=== PATIENT | male | born 1955 | race Caucasian/White ===

== ENCOUNTER 2022-01-02 13:17 | Emergency (ER) | payer MEDICARE, SELFPAY ==
[2022-01-02 15:21] VITALS: BP 152/106; PULSE 64; RESP 18; TEMP 36.9; O2SAT 97; BMI 23.7
--- NOTE | 2022-01-02 15:30 | HMH.EDUTC ---
[facility] [place] Clinical Impression: Bronchitis Sinusitis Qualifiers: Sinusitis location: unspecified location Chronicity: acute Recurrence: non-recurrent Qualified Code(s): J01.90 - Acute sinusitis, unspecified Disposition: Home, Self-Care Condition on Discharge: Good Instructions: Sinusitis, DI for Sinusitis, DI for Acute Bronchitis Additional Instructions: Drink plenty of fluids. Take tylenol or ibuprofen for pain or fever. Take the medications as directed. Follow up with your regular doctor. GO TO THE ER FOR ANY WORSENING SYMPTOMS Don't start the oral steroids until tomorrow, since you had the shot here today. Prescriptions: Benzonatate [Benzonatate 100mg cap] 100 mg PO TIDP PRN #30 cap PRN Reason: Cough Transmission Status: Received by [facility] methylPREDNISolone [Medrol] 4 mg PO DIRECTED 6 Days #21 packet Transmission Status: Received by [facility] Azithromycin [Z-Jean 250mg Tab*] 250 mg PO UD DOSE PK #6 tab Transmission Status: Received by [facility] Referrals: Provider,Referral, [Primary Care Provider] - Time of Disposition: 16:25 Medical Decision Making - Medical Records Medical records reviewed: No: I reviewed the patient's medical records. - Gildardo Inquiry Pt receiving controlled substance: No Vital Signs: 01/02/22 15:21 01/02/22 16:30 Temperature 98.4 F 98.4 F Temperature Source Oral Pulse Rate 64 Pulse Rate [Left] 64 Respiratory Rate 18 18 Blood Pressure 152/106 H Blood Pressure [Right Arm] 152/106 H Blood Pressure Mean [Right Arm] 121 02 Sat by Pulse Oximetry 97 - Lab Data Lab results reviewed: Yes: I reviewed the patient's lab results. Orders (Tests/Meds): ED MEDICATIONS Discontinued Medications Generic Name Dose Route Start Last Admin Trade Name Freq PRN Reason Stop Dose Admin Ceftriaxone Sodium 1 gm 01/02/22 16:01/02/22 16:26 Ceftriaxone 1gm Vial IM 01/02/22 16:10 1 gm ONCE ONE Administration Lidocaine HCl 0 ml 01/02/22 16:01/02/22 16:26 Lidocaine 1% 5ml Pf Vial IM 01/02/22 16:10 2 ml ONCE ONE Administration Methylprednisolone Sodium Succinate 125 mg 01/02/22 16:01/02/22 16:26 Methylprednisolone Sod Succ 125mg Vial IM 01/02/22 16:10 125 mg ONCE ONE Administration [facility] [place] - General Stated complaint: sinus problems Time Seen by Provider: 01/02/22 15:30 Mode of Arrival: Ambulatory Source of Information: Patient Limitations: No Limitations Description of Symptoms (Recalled from Triage Doc. by RN): pt c/o a CHILDRESS, congestion and a productive cough with yellow sputum. x4 days. HEENT Symptoms (Recalled from RN notes): Yes Resp Symptoms (Recalled from RN notes): Yes Skin Symptoms (Recalled from RN notes): No MS Symptoms (Recalled from RN notes): No Functional Status (Recalled from RN notes): wnl - History of Present Illness Provider Complaint: He c/o sinus congestion and having a cough for the past 4 days. - Related Data Previous Rx's Medication Instructions Recorded Azithromycin [Z-Jean 250mg Tab*] 250 mg PO UD DOSE PK #6 tab 01/02/22 Benzonatate [Benzonatate 100mg 100 mg PO TIDP PRN #30 cap 01/02/22 cap] methylPREDNISolone [Medrol] 4 mg PO DIRECTED 6 Days #21 01/02/22 packet Allergies Allergy/AdvReac Type Severity Reaction Status Date / Time No Known Allergies Allergy Verified 01/02/22 15:41 - Worker's Comp Is this a Worker's Comp case?: No [facility] History - Hepatitis A Screen Drug use history?: No High risk sexual behaviors?: No History of sexually transmitted infection?: No Currently employed?: No Childcare worker?: No Do you have indoor plumbing?: Yes Do you have electricity?: Yes Attestation statement:: This patient has been screened for Hepatitis A risk factors. I have reviewed the patient's past medical history: Yes ROS Obtained: Yes All systems reviewed & no additional complaints - Constitutional Con
[2022-01-02 16:30] VITALS: BP 152/106; PULSE 64; RESP 18; TEMP 36.9
== END 2022-01-02 16:32 | disposition home or self-care (01) ==
LOC: UTC 13:24
PROVIDERS: Emergency Provider Nurse Practitioner Family
DX: J20.9 Acute bronchitis, unspecified (principal); J01.90 Acute sinusitis, unspecified
CPT/HCPCS: 96372; 99213; G0463; J0696

== ENCOUNTER 2022-04-01 17:19 | Emergency (ER) | payer MEDICARE, SELFPAY ==
--- NOTE | 2022-04-01 17:58 | HMH.EDUTC ---
[facility] [place] Disposition Clinical Impression: Cellulitis of right hand Disposition: Home, Self-Care Condition on Discharge: Good Instructions: Cellulitis Additional Instructions: Keep the affected area clean and dry. Follow up with your regular doctor. Take the antibiotics as directed and apply the topical antibiotics as directed. Apply warm wet compresses to the affected area three or four times per day. GO TO THE ER FOR ANY WORSENING SYMPTOMS Prescriptions: Sulfamethoxazole/Trimethoprim [Bactrim DS tablet] 1 each PO BID 10 Days #20 tab Transmission Status: Received by [facility] Mupirocin [Bactroban 2% Ointment 22gm tube] 1 applicatio TP TID 7 Days #1 gm Transmission Status: Received by [facility] cephALEXin [cephALEXin 500mg capsule] 500 mg PO Q6H 10 Days #40 cap Transmission Status: Received by [facility] Referrals: Provider,Referral, [Primary Care Provider] - Time of Disposition: 18:33 Medical Decision Making - Medical Records Medical records reviewed: No: I reviewed the patient's medical records. - Gildardo Inquiry Pt receiving controlled substance: No Vital Signs: 04/01/22 18:12 04/01/22 18:37 Temperature 98.5 F 98.5 F Temperature Source Oral Pulse Rate 65 Pulse Rate [Left] 65 Respiratory Rate 18 18 Blood Pressure 145/100 H Blood Pressure [Right Arm] 145/100 H Blood Pressure Mean [Right Arm] 115 02 Sat by Pulse Oximetry 99 [facility] [place] HPI - General Stated complaint: POSSIBLE INSECT BITE R HAND Time Seen by Provider: 04/01/22 17:58 - History of Present Illness Provider Complaint: He states that he has had swelling of the back of his right hand for the past 1 day. He denies any injury. He thinks that he was bit by a bug. - Related Data Previous Rx's Medication Instructions Recorded Azithromycin [Z-Jean 250mg Tab*] 250 mg PO UD DOSE PK #6 tab 01/02/22 Benzonatate [Benzonatate 100mg 100 mg PO TIDP PRN #30 cap 01/02/22 cap] methylPREDNISolone [Medrol] 4 mg PO DIRECTED 6 Days #21 01/02/22 packet Mupirocin [Bactroban 2% Ointment 1 applicatio TP TID 7 Days #1 gm 04/01/22 22gm tube] Sulfamethoxazole/Trimethoprim 1 each PO BID 10 Days #20 tab 04/01/22 [Bactrim DS tablet] cephALEXin [cephALEXin 500mg 500 mg PO Q6H 10 Days #40 cap 04/01/22 capsule] Allergies Allergy/AdvReac Type Severity Reaction Status Date / Time No Known Allergies Allergy Verified 04/01/22 18:15 [facility] History - Hepatitis A Screen Attestation statement:: This patient has been screened for Hepatitis A risk factors. I have reviewed the patient's past medical history: Yes ROS Obtained: Yes All systems reviewed & no additional complaints - Constitutional Constitutional: Denies chills, Denies fever(s) - Musculoskeletal Musculoskeletal: Denies joint pain - Integumentary/Breasts Skin/Breast: Reports as per HPI - Neurologic Neurologic: Denies tingling/numbness/burning sensations Physical Exam - General General appearance: alert, in no apparent distress - Head Head exam: atraumatic, normocephalic, normal inspection - Eye Eye exam: Present: normal appearance, PERRL, EOMI - ENT ENT exam: Present: normal exam, normal oropharynx, mucous membranes moist, TM's normal bilaterally, normal external ear exam - Neck Neck exam: Present: normal inspection, full ROM, trachea midline. Absent: meningismus, lymphadenopathy - Chest Chest inspection: Present: normal inspection, symmetric chest wall rise. Absent: tenderness - Respiratory Respiratory exam: Present: normal lung sounds bilaterally. Absent: respiratory distress - Cardiovascular Cardiovascular exam: Present: regular rate, normal rhythm. Absent: JVD - Abdominal Exam Abdominal exam: Present: soft, normal bowel sounds. Absent: distention, tenderness, guarding - Extremities Exam Extremities exam: Present: normal inspection, full ROM, normal capillary refill. Absent: calf te
[2022-04-01 18:12] VITALS: BP 145/100; PULSE 65; RESP 18; TEMP 36.9; O2SAT 99; BMI 23.0
[2022-04-01 18:37] VITALS: BP 145/100; PULSE 65; RESP 18; TEMP 36.9
== END 2022-04-01 18:37 | disposition home or self-care (01) ==
PROVIDERS: Emergency Provider Nurse Practitioner Family
DX: L03.113 Cellulitis of right upper limb
CPT/HCPCS: 99212; G0463